=== PATIENT | male | born 1965 | race Caucasian/White ===

== ENCOUNTER 2025-05-08 12:38 | Outpatient (CLI) | payer BC ==
[2025-05-08] MEDS ORDERED: Iopamidol 300 61% 100 ML VIAL FS ONE (12:51)
== END 2025-05-08 12:39 | disposition home or self-care (01) ==
LOC: CSHCT 12:38
PROVIDERS: ATTEND Pediatrics
DX: G95.89 Other specified diseases of spinal cord (principal); M89.9 Disorder of bone, unspecified; M79.9 Soft tissue disorder, unspecified; R93.89 Abnormal findings on diagnostic imaging of other specified body structures
CPT/HCPCS: 71260; 72128; 72157; 74177; Q9967